=== PATIENT | male | born 1980 | race Caucasian/White ===

== ENCOUNTER 2019-02-14 08:09 | Emergency (ER) | payer BC ==
[2019-02-14 08:46] VITALS: BP 111/75
--- NOTE | 2019-02-14 08:47 | UC ---
Upper Extremity HPI - HPI Summary HPI Summary: 38 year old male with no PMH presents with R shoulder pain, right handed. no prior injuries, no trauma. patient states has been moving, lifting boxes lately. Thurs was pressure washinga when noted R shoudler pain, has become more severe to where difficulty moving shoulder or raising arm forward. Taking Motrin, no relief/ minimal relief. + difficulty sleeping. - History of Current Complaint Stated Complaint: RT SHOULDER INJURY Time Seen by Provider: 02/14/19 08:28 Hx Obtained From: Patient ?: No Onset/Duration: Sudden Onset, Lasting Days - since thurs Severity Initially: Moderate Severity Currently: Moderate Location Of Pain: Is Discrete @ - R shoulder Character: Sharp Aggravating Factor(s): Movement, Flexion, Extension Alleviating Factor(s): Nothing Associated Signs And Symptoms: Positive: Negative, Weakness - Allergies/Home Medications Home Medications: Home Medications Fluticasone NASAL SPRAY 50MCG* [Flonase NASAL SPRAY 50MCG*] 2 spray BOTH NARES DAILY 02/14/19 [History Confirmed 02/14/19] Omeprazole CAP (NF) [Prilosec CAP* 20 MG] 20 mg PO DAILY 02/14/19 [History Confirmed 02/14/19] PMH/Surg Hx/FS Hx/Imm Hx Previously Healthy: Yes - Surgical History Surgery Procedure, Year, and Place: Oral Review of Systems All Other Systems Reviewed And Are Negative: Yes Musculoskeletal: Positive: Arthralgia, Decreased ROM, Edema, Myalgia Is Patient Immunocompromised?: No Physical Exam Triage Information Reviewed: Yes Appearance: Well-Appearing, No Pain Distress, Well-Nourished Vital Signs Reviewed: Yes Eyes: Positive: Conjunctiva Clear Neck: Positive: Supple, Nontender, No Lymphadenopathy, Other: - neg spurling. Negative: Nuchal Rigidity, Enlarged Nodes @ Musculoskeletal: Positive: Other: - R shoulder + supraspin weakness, pain, severe; mild infraspina pain, weakness; + Speed mild. TTP throughout shoulder joint anteriorly. Full ROM elbow, wrist Neurological Exam: Normal Neurological: Positive: Alert, Other: - SITLT below R shoulder Psychological Exam: Normal Skin Exam: Normal Skin: Negative: Breakdown, Significant Lesion(s) Upper Extremity Course/Dx - Course Course Of Treatment: exam consistent with RC tendonitis, follow up with ortho if no improvement within 2-3 days. Sling, NSAIDs - Differential Dx/Diagnosis Differential Diagnosis/HQI/PQRI: Strain, Sprain Provider Diagnosis: Rotator cuff tendinitis Discharge - Sign-Out/Discharge Documenting (check all that apply): Patient Departure All imaging exams completed and their final reports reviewed: No Studies - Discharge Plan Condition: Good Disposition: HOME Prescriptions: Naproxen [Naproxen 500 mg tab] 500 mg PO BID #15 tablet. Patient Education Materials: Rotator Cuff Injury (ED), How to Use a Sling (ED) , R.I.C.E. Treatment (ED) Referrals: Mars Hoover DO [Primary Care Provider] - Iam Torrez MD [Medical Doctor] - Ken Richardson MD [Medical Doctor] - Additional Instructions: - Sling for comfort- Remove throughout the day to move shoulder gentle. Increase range of motion, movement as tolerated - If no improvement within 2-3 days, follow up with orthopedics/ sports medicine - Naprozen 500mg twice daily x 5 days to help with swelling, inflammation, pain - make take tylenol as well for pain, DO NOT TAKE MOTRIN< IBUPROFEN OR ASPIRIN WHILE TAKING NAPROXEN - Ice, rest shoulder until improvement - Billing Disposition and Condition Condition: GOOD Disposition: Home
== END 2019-02-14 09:00 | disposition home or self-care (01) ==
LOC: UCEAST 08:09
DX: M75.91 Shoulder lesion, unspecified, right shoulder (principal)
CPT/HCPCS: 99213; G0463